=== PATIENT | female | born 1955 ===

== ENCOUNTER 2020-12-03 12:26 | Outpatient (CLI) | payer OTHER | END 2020-12-03 23:59 | disposition home or self-care (01) | LOC: CFH 12:26 → EDSTATUS 12:30 → CFH 23:59 | PROVIDERS: ATTEND Obstetrics & Gynecology | DX: Z12.31 Encounter for screening mammogram for malignant neoplasm of breast (principal) | CPT/HCPCS: 77063; 77067 ==